=== PATIENT | female | born 1960 | race Caucasian/White ===

== ENCOUNTER 2017-08-01 08:11 | Emergency (ER) | payer MEDICAID, MEDICARE ==
[~2017-08-01] VITALS: Ht 165.1 cm; Wt 53.0 kg
[2017-08-01 08:12] VITALS: BP 110/72
== END 2017-08-01 08:54 | disposition left against medical advice (07) ==
LOC: ED 08:45
DX: G47.00 Insomnia, unspecified (principal); Z53.21 Procedure and treatment not carried out due to patient leaving prior to being seen by health care provider